=== PATIENT | female | born 1955 ===

== ENCOUNTER → 2018-08-16 22:04 | Outpatient (REF) | payer OTHER, SELFPAY ==
[2018-08-17 00:56] LABS: Add Manual Diff / Slide Review NO; Basophils Absolute Auto 0 /uL (0-100); Basophils Percent Auto 1.3 % (0-2); Eosinophils Absolute Auto 100 /uL (0-450); Hematocrit 40.8 % (36-46); Hemoglobin 13.4 g/dL (12.0-16.0); Lymphocytes Absolute Auto 1500 /uL (1100-4500); Lymphocytes Percent Auto 42.5 % (25-40); Mean Corpuscular HGB Conc 32.9 % (30-36); Mean Corpuscular Hemoglobin 30.8 PG (26-34); Mean Corpuscular Volume 93.6 fL (80-100); Monocytes Absolute Auto 200 /uL (0-900); Monocytes Percent Auto 5.9 % (3-14); Neutrophils Absolute Auto 1700 /uL (1500-7000); Neutrophils Percent Auto 48.3 % (50-75); Platelet Count 175 X10^3/uL (150-400); Red Blood Cell Count 4.36 X10^6/uL (4.0-5.2); Red Cell Distribution Width 13.2 % (11.6-14.8); White Blood Cell Count 3.4 X10^3/uL (4.5-11.0)
[2018-08-17 01:55] LABS: Free T3, Triiodothyronine Free 3.81 pg/mL (2.77-5.27); Free T4, Direct Thyroxine 1.31 ng/dL (0.78-2.19)
[2018-08-21 14:09] LABS: EBV Virus IgM Ab < 36.00 U/mL (< 36.00)
== END ==
LOC: LAB 22:04
PROVIDERS: Visit Provider Acupuncturist
DX: R53.83 Other fatigue (principal); G47.9 Sleep disorder, unspecified
CPT/HCPCS: 36415; 84439; 84443; 84481; 84482; 85025; 86663; 86664; 86665